=== PATIENT | female | born 1990 | race American Indian/Alaskan Native ===

== ENCOUNTER 2020-04-22 16:41 | Outpatient (CLI) | payer OTHER ==
[2020-04-22 17:57] LABS: Hemoglobin 12.2 gm/dl (10.1-14.3); Mean Corpuscular HGB Conc 35 % (30-34); Mean Corpuscular Volume 93 fl (79-97); Platelet Count 196 K/mm3 (140-440); Red Blood Count 3.75 M/mm3 (3.65-5.03); Red Cell Distribution Width 13.8 % (13.2-15.2)
[2020-04-22 18:08] LABS: Bilirubin,Urine NEG (Negative); Blood,Urine NEG (Negative); Color,Urine Yellow (Yellow); Mucus,Urine FEW /HPF; WBC,Urine < 1.0 /HPF (0.0-6.0)
[2020-04-22 18:21] LABS: Alanine Aminotransferase 13 units/L (7-56); Uric Acid 3.9 mg/dL (3.5-7.6)
[2020-04-22 18:59] VITALS: BP 114/70
== END 2020-04-22 18:59 | disposition home or self-care (01) ==
LOC: TRG 16:41 → APU 16:41 → EDBD 16:41 → TRG 18:59
PROVIDERS: ATTEND Obstetrics & Gynecology
DX: Z34.93 Encounter for supervision of normal pregnancy, unspecified, third trimester (principal); Z3A.39 39 weeks gestation of pregnancy
CPT/HCPCS: 36415; 81001; 82565; 83615; 84450; 84460; 84550; 85027

== ENCOUNTER 2020-04-26 10:32 | Inpatient (IN) | payer OTHER ==
[2020-04-26] MEDS ORDERED: OXYTOCIN DRIP 30,000 MILLIUNITS/500 ML BAG IV ONE (11:15)
[2020-04-26] MEDS ORDERED: LACTATED RINGERS 1,000 ML ONE (11:15)
[2020-04-26] MEDS ORDERED: AMPICILLIN/NS 2 GM/100 ML 2 GM/100 ML BAG IV ONE ×2 (11:30→11:39)
[2020-04-26] MEDS ORDERED: fentaNYL 100 MCG/2 ML INJ ONE (11:36)
[2020-04-26] MEDS ORDERED: fentaNYL 100 MCG/2 ML INJ IV ONE (11:46)
[2020-04-26] MEDS ORDERED: LIDOCAINE (2%) 20 MG/1 ML VIAL 20 ML MDV INFILTRATI NR (11:51)
[2020-04-26] MEDS ORDERED: TERBUTALINE 1 MG/1 ML INJ SUB-Q PRN (11:51)
--- NOTE | 2020-04-26 11:55 | History and Physical Report ---
History of Present Illness Date of examination: 04/26/20 Date of admission: 04/26/20 11:03 Chief complaint: Intense labor pains History of present illness: Early entry to care at 8 4/7 weeks to [facility]. course complicated by nausea and vomiting with weight loss of 5 lbs in second trimester, mild thyroid enlargement (TSH 0.397 on profile; TSH 1.730 at 28 weeks), and elevated blood pressure at 39 weeks (negative PIH workup). Past History Past Medical History: migraines Past Surgical History: no surgical history Family/Genetic History: hypertension (mother), other (thyroid disease - mother) Social history: no significant social history - Obstetrical History Expected Date of Delivery: 04/29/20 Actual Gestation: 39 Week(s) 4 Day(s) : 1 Para: 0 Medications and Allergies Allergies Allergy/AdvReac Type Severity Reaction Status Date / Time No Known Allergies Allergy Verified 04/22/20 16:52 Home Medications Medication Instructions Recorded Confirmed Last Taken Type RX: No Known Home Medications [No 04/26/20 04/26/20 Unknown History Reported Home Medications] Active Meds: Active Medications Fentanyl (Fentanyl 100 Mcg/2 Ml Inj) 100 mcg IV ONCE ONE Stop: 04/26/20 11:47 Ampicillin Sodium (Ampicillin/Ns 2 Gm/100 Ml) 2 gm in 100 mls @ 100 mls/hr IV ONCE ONE; Protocol Stop: 04/26/20 12:29 Review of Systems All systems: negative - Vital Signs Vital signs: Vital Signs Pulse Pulse Ox 86 98 04/22/20 19:00 04/22/20 19:00 Temp Pulse Resp BP Pulse Ox 98.5 F 78 22 129/86 100 04/26/20 11:12 04/26/20 11:40 04/26/20 11:12 04/26/20 11:12 04/26/20 11:40 - Physical Exam Breasts: Positive: normal Cardiovascular: Regular rate Lungs: Positive: Clear to auscultation, Normal air movement Abdomen: Positive: normal appearance, soft Genitourinary (Female): Positive: normal external genitalia, normal perenium Vagina: Positive: normal moisture Uterus: Positive: enlarged Anus/Rectum: Positive: normal perianal skin Extremities: Positive: normal - Obstetrical FHR: category 2 FHR comments: Multiple variable decels Uterine Contraction Monitor Mode: External Cervical Dilatation: 7 (Moderate amount of clear fluid noted upon AROM at 1120.) Cervical Effacement Percentage: 90 station: -2 Uterine Contraction Pattern: Irregular Uterine Tone Measurement Phase: Resting Uterine Contraction Intensity: Moderate Results All other labs normal. Assessment and Plan A: IUP at 39 4/7 weeks Category 2 tracing Active Labor GBS Positive P: Admit to L&D per routine orders AROM Internals x 2 placed Amnioinfusion Maternal Position Changes Prepare for Epidural Anesthesia GBS Prophylaxis
[2020-04-26] MEDS ORDERED: SODIUM CHLORIDE 0.9% 1000 ML 1,000 ML VG SCH (12:00)
[2020-04-26] MEDS ORDERED: LACTATED RINGERS 1,000 ML IV SCH (12:00)
[2020-04-26] MEDS ORDERED: NALOXONE 0.4 MG/1 ML INJ IV PRN (12:00)
[2020-04-26] MEDS ORDERED: ePHEDrine SULFATE 50 MG/1 ML INJ IV PRN ×2 (12:00→14:00)
[2020-04-26] MEDS ORDERED: BUTORPHANOL 2 MG/1 ML INJ IV PRN (12:00)
[2020-04-26] MEDS ORDERED: OXYTOCIN DRIP 30 UNITS/500 ML BAG IV SCH ×2 (12:00)
[2020-04-26] MEDS ORDERED: SODIUM CHLORIDE 0.45% 1000 ML 1,000 ML IV SCH (12:00)
[2020-04-26] MEDS ORDERED: ONDANSETRON 4 MG/2 ML INJ IV PRN (12:00)
[2020-04-26] MEDS ORDERED: SODIUM CHLORIDE 0.45% 1000 ML 1,000 ML IV ONE (12:05)
[2020-04-26 12:18] LABS: Hemoglobin 12.2 gm/dl (10.1-14.3); Mean Corpuscular HGB Conc 34 % (30-34); Mean Corpuscular Volume 94 fl (79-97); Platelet Count 191 K/mm3 (140-440); Red Blood Count 3.85 M/mm3 (3.65-5.03); Red Cell Distribution Width 13.7 % (13.2-15.2)
[2020-04-26] MEDS ORDERED: SODIUM CHLORIDE 0.45% 1000 ML IV SOLN IV SCH (12:30)
--- NOTE | 2020-04-26 13:38 | Anesthesia Consultation ---
Anesthesia Consult and Med Hx Date of service: 04/26/20 - Airway Anesthetic Teeth Evaluation: Good ROM Head & Neck: Adequate Mental/Hyoid Distance: Adequate Mallampati Class: Class II Intubation Access Assessment: Good - Pulmonary Exam CTA: Yes - Cardiac Exam Cardiac Exam: RRR - Pre-Operative Health Status ASA Pre-Surgery Classification: ASA2 Proposed Anesthetic Plan: Epidural - Pulmonary Hx Smoking: No Hx Asthma: No Hx Respiratory Symptoms: No SOB: No COPD: No Home Oxygen Therapy: No Hx Pneumonia: No Hx Sleep Apnea: No - Cardiovascular System Hx Hypertension: Yes (39 weeks, no PIH) Hx Coronary Artery Disease: No Hx Heart Attack/AMI: No Hx Angina: No Hx Percutaneous Transluminal Coronary Angioplasty (PTCA): No Hx Cardia Arrhythmia: No Hx Pacemaker: No Hx Internal Defibrillator: No Hx Valvular Heart Disease: No Hx Heart Murmur: No Hx Peripheral Vascular Disease: No - Central Nervous System Hx Neuromuscular Disorder: Yes (Migraines) Hx Seizures: No CVA: No Hx Back Pain: No Hx Psychiatric Problems: No - Gastrointestinal Hx Ulcer: No Hx Gastroesophageal Reflux Disease: Yes - Endocrine Hx Renal Disease: No Hx End Stage Renal Disease: No Hx Cirrhosis: No Hx Liver Disease: No Hx Insulin Dependent Diabetes: No Hx Non-Insulin Dependent Diabetes: No Hx Thyroid Disease: Yes Hx Hypothyroidism: No Hx Hyperthyroidism: Yes (mild) - Hematic Hx Anemia: No Hx Sickle Cell Disease: No - Other Systems Hx Alcohol Use: No Hx Substance Use: No Hx Cancer: No Hx Obesity: No
[2020-04-26] MEDS ORDERED: NALOXONE 2 MG/2 ML INJ IV PRN (13:40)
[2020-04-26] MEDS ORDERED: fentaNYL-BUPIV 2 MCG/ML-0.125% 200 MCG/100 ML BAG EPIDURAL SCH (14:00)
--- NOTE | 2020-04-26 14:00 | Progress Note ---
Labor Epidural - Labor Epidural Start Time: 13:09 Stop Time: 13:19 Performed by:: TAVIA ROGERS Procedure: Patient is requesting a laboring epidural for laboring pain. Patient IDed, H&P reviewed, all questions and concerns were answered, and consent was signed. Timeout was performed at bedside. Patient in sitting position. Sterile prep and drape was performed. [3] ml of 1% lidocaine skin wheal at L[3]- L [4]. 18- gauge Tuohy epidural needle was advanced to loss of resistance with air technique. Negative CSF negative blood. Epidural catheter advanced to [12] centimeters. [NEGATIVE] Aspiration [NEGATIVE] test dose. Sterile dressing applied. Patient tolerated procedure.
[2020-04-26] MEDS ORDERED: MINERAL OIL 30 ML ORAL LIQD ONE ×3 (14:03→15:58)
[2020-04-26] MEDS ORDERED: AMPICILLIN/NS 1 GM/50 ML 1 GM/50 ML BAG IV SCH (15:53)
[2020-04-26] MEDS ORDERED: WITCH HAZEL/ GLYCERIN PAD TP PRN (17:00)
--- NOTE | 2020-04-26 17:01 | Procedure Note ---
OB Delivery Note - Delivery Date of Delivery: 04/26/20 (1618) Surgeon: SADI LO Estimated blood loss: 200cc - Vaginal Delivery presentation: vertex Delivery position: OA Intrapartum events: mult. late decelerations, mult.variable deceleratio Delivery induction: none Delivery augmentation: rupture of membranes, pitocin Delivery monitor: internal FHT, internal uterine Route of delivery: Delivery placenta: spontaneous Delivery cord: nuchal cord, 3 umbilical vessels Episiotomy: none Delivery laceration: 1st degree (bilateral labial) Delivery repair: vicryl Anesthesia: epidural Delivery comments: of a live 6'5 male with Apgars of 8 and 9 over 1st degree bilateral labial lacerations under epidural anesthesia at 1618 on 04/26/2020. Loose nuchal cord x 1. Cord reduced over shoulders on perineum; delivered through cord. directly to maternal abd/chest, skin to skin contact. Delayed cord clamping; cord double clamped and cut by father of baby. Spontaneous delivery of placenta complete and intact with Cote side presenting at 1632. Fundus is firm and midline, located 4 below the U. Lochia is scant. Lacerations repaired with 2-0 vicryl on a SH. GBS prophylaxis x 1 dose. Placenta to be discarded. - Infant A at 1 minute: 8 at 5 minutes: 9 Gender: Male (6'5)
[2020-04-26] MEDS ORDERED: diphenhydrAMINE 25 MG CAP PO PRN (17:30)
[2020-04-26] MEDS ORDERED: PROMETHAZINE 25 MG RECT SUPP PR PRN (17:30)
[2020-04-26] MEDS ORDERED: HYDROcodone/ACETAMINOPHEN 5-325 MG TAB PO PRN (18:00)
[2020-04-26] MEDS ORDERED: LANOLIN/ZINC/DIMETHICONE (LANSINOH) 7 GM TP PRN (18:00)
[2020-04-26] MEDS ORDERED: MAGNESIUM HYDROXIDE (MOM) ORAL LIQD UDC PO PRN (22:00)
[2020-04-26] MEDS ORDERED: MINERAL OIL 30 ML ORAL LIQD PO PRN (22:00)
[2020-04-26] MEDS: IBUPROFEN 600 MG TAB PO SCH (22:52)
--- NOTE | 2020-04-27 05:38 | Post Anesthesia Evaluation ---
- Post Anesthesia Evaluation Patient Participated: Yes Airway Patent: Yes Stable Respiratory Function: Yes Nausea/Vomiting: No Temp > 96.8F: Yes Pain Manageable: Yes Adequeate Hydration: Yes Anesthesia Complications: No Block Receding Appropriately: Yes Patient on Ventilator: No
[2020-04-27] MEDS: IBUPROFEN 600 MG TAB PO SCH ×4 (05:39→23:28)
[2020-04-27 08:11] LABS: Hematocrit 32.7 % (30.3-42.9); Hemoglobin 11.1 gm/dl (10.1-14.3)
--- NOTE | 2020-04-27 09:07 | Progress Note ---
Assessment and Plan PPD # 1 A: S/P p: Continue monitoring Encourage ambulation D/C home tomm if stable Subjective - Subjective Date of service: 04/27/20 Principal diagnosis: S/P Patient reports: appetite normal, voiding normally, pain well controlled, ambulating normally [place]: doing well, bottle feeding Objective - Vital Signs Latest vital signs: Vital Signs Temp Pulse Resp BP BP Pulse Ox 04/27/20 08:00 98.0 F 93 H 18 138/83 99 04/27/20 05:39 20 04/27/20 05:37 98.8 F 81 16 111/79 99 04/27/20 00:37 99.2 F 97 H 18 112/76 98 04/26/20 22:52 20 04/26/20 19:55 98.1 F 71 16 122/84 100 04/26/20 18:29 98.8 F 87 16 127/75 100 04/26/20 18:08 104 H 131/86 04/26/20 18:05 18 04/26/20 17:52 88 125/63 04/26/20 17:50 81 134/60 98 04/26/20 17:49 85 124/60 04/26/20 17:47 100 H 139/62 04/26/20 17:45 101 H 146/66 100 04/26/20 17:42 95 H 127/77 04/26/20 17:40 98 H 129/78 100 04/26/20 17:38 82 123/73 04/26/20 17:36 77 127/78 04/26/20 17:35 81 99 04/26/20 17:34 79 124/72 04/26/20 17:32 85 117/70 04/26/20 17:31 80 115/67 04/26/20 17:30 83 98 04/26/20 17:29 91 H 127/77 04/26/20 17:25 79 86 04/26/20 17:22 94 H 136/78 04/26/20 17:20 93 H 136/77 100 04/26/20 17:18 91 H 128/77 04/26/20 17:16 89 127/78 04/26/20 17:15 96 H 100 04/26/20 17:14 86 126/79 04/26/20 17:12 84 129/80 04/26/20 17:10 88 127/74 100 04/26/20 17:08 104 H 140/79 04/26/20 17:06 89 124/80 04/26/20 17:05 102 H 100 04/26/20 17:04 96 H 128/80 04/26/20 17:02 86 120/78 04/26/20 17:00 93 H 114/78 99 04/26/20 16:58 85 114/73 04/26/20 16:56 94 H 113/74 04/26/20 16:55 96 H 100 04/26/20 16:54 96 H 126/72 04/26/20 16:53 104 H 134/71 04/26/20 16:50 106 H 97 04/26/20 16:49 110 H 119/69 04/26/20 16:46 101 H 127/80 04/26/20 16:45 102 H 97 04/26/20 16:44 98 H 124/70 04/26/20 16:42 101 H 126/61 04/26/20 16:40 97 H 122/61 04/26/20 16:38 96 H 127/61 04/26/20 16:37 96 H 127/66 04/26/20 16:35 106 H 110/58 04/26/20 16:32 88 116/60 65 L 04/26/20 16:30 109 H 117/62 04/26/20 16:28 111 H 115/60 04/26/20 16:27 66 72 L 04/26/20 16:26 114 H 124/57 04/26/20 16:24 120 H 132/58 04/26/20 16:22 120 H 135/63 04/26/20 16:21 131 H 135/63 04/26/20 16:19 157 H 191/93 04/26/20 16:16 125 H 117/60 04/26/20 16:14 126/61 04/26/20 16:12 162 H 117/58 04/26/20 16:10 141 H 124/73 04/26/20 16:08 129 H 126/56 04/26/20 16:06 117 H 119/58 04/26/20 16:04 131 H 115/55 04/26/20 16:03 123 H 119/57 03/15/21 16:01 81 153/91 88 03/15/21 16:00 55 L 94 04/26/20 15:58 137 H 125/78 04/26/20 15:56 153 H 129/81 04/26/20 15:54 157 H 122/71 04/26/20 15:53 130 H 117/55 04/26/20 15:51 155 H 215/96 04/26/20 15:49 142 H 0 L 04/26/20 15:47 129 H 130/58 04/26/20 15:46 93 H 96 04/26/20 15:44 101 H 120/64 04/26/20 15:42 134 H 116/65 04/26/20 15:41 64 100 04/26/20 15:40 97 H 113/63 04/26/20 15:38 93 H 111/61 04/26/20 15:37 97 H 108/69 04/26/20 15:36 99 H 100 04/26/20 15:35 120 H 105/70 04/26/20 15:33 98 H 116/55 04/26/20 15:31 122 H 122/62 100 04/26/20 15:29 127 H 144/62 04/26/20 15:27 86 126/61 04/26/20 15:26 87 100 04/26/20 15:24 80 119/69 04/26/20 15:22 78 112/72 04/26/20 15:21 85 100 04/26/20 15:20 73 116/73 92 04/26/20 15:18 75 115/69 04/26/20 15:17 80 120/77 04/26/20 15:16 83 100 04/26/20 15:14 87 125/82 04/26/20 15:12 79 124/77 04/26/20 15:11 79 100 04/26/20 15:10 77 119/75 04/26/20 15:08 69 118/74 04/26/20 15:06 76 117/76 100 04/26/20 15:04 81 120/78 04/26/20 15:03 82 118/75 04/26/20 15:01 82 100 04/26/20 15:00 79 120/77 04/26/20 14:58 75 121/75 04/26/20 14:56 84 130/83 100 04/26/20 14:54 81 128/71 04/26/20 14:52 91 H 127/70 04/26/20 14:51 75 100 04/26/20 14:50 74 126/72 04/26/20 14:48 80 127/78 04/26/20 14:46 84 127/77 100 04/26/20 14:44 77 119/80 04/26/20 14:42 137/75 04/26/20 14:41 91 H 100 04/26/20 14:40 76 119/73 04/26/20 14:39 82 124/77 04/26/20 14:37 88 140/99 04/26/20 14:36 88 100 04/26/20 14:34 86 115/68 04/26/20 14:33 85 126/78 04/26/20 14:31 75 100 04/26/20 14:30 83 120/56 04/26/20 14:29 78 123/61 04/26/20 14:26 81 120/68 100 04/26/20 14:25 88 128/75 04/26/20 14:23 88 114/81 04/26/20 14:21 80 117/73 100 04/26/20 14:18 93 H 114/84 04/26/20 14:16 86 118/78 100 04/26/20 14:14 82 116/66 04/26/20 14:12 75 109/63 04/26/20 14:11 79 112/61 100 04/26/20 14:09 92 H 110/53 04/26/20 14:07 101 H 130/79 04/26/20 14:06 92 H 99 04/26/20 14:05 93 H 112/61 04/26/20 14:03 146 H 157/107 04/26/20 14:01 94 H 100 04/26/20 13:59 89 133/59 04/26/20 13:56 85 100 04/26/20 13:54 90 118/57 04/26/20 13:51 83 100 04/26/20 13:48 82 118/62 04/26/20 13:47 100 H 107/63 04/26/20 13:46 91 H 100 04/26/20 13:45 82 112/68 04/26/20 13:41 93 H 99 04/26/20 13:37 186/131 04/26/20 13:35 82 89 04/26/20 13:34 76 98 04/26/20 13:30 103 H 195/128 04/26/20 13:29 75 83 L 04/26/20 13:28 85 94 04/26/20 13:26 128/72 04/26/20 13:25 130/84 04/26/20 13:24 73 99 04/26/20 13:23 90 141/81 92 04/26/20 13:20 79 124/68 04/26/20 13:19 65 99 04/26/20 13:18 95 H 121/66 04/26/20 13:16 77 119/59 04/26/20 13:14 79 110/57 98 04/26/20 13:12 78 120/62 04/26/20 13:09 82 99 04/26/20 13:04 90 99 04/26/20 12:59 76 100 04/26/20 12:54 105 H 100 04/26/20 12:49 81 100 04/26/20 12:44 111 H 99 04/26/20 12:39 89 99 04/26/20 12:34 80 100 04/26/20 12:29 76 100 04/26/20 12:24 79 99 04/26/20 12:19 77 100 04/26/20 12:14 86 82 L 04/26/20 12:09 93 04/26/20 11:45 18 04/26/20 11:40 78 100 04/26/20 11:35 83 99 04/26/20 11:30 83 98 04/26/20 11:25 91 H 97 04/26/20 11:23 82 71 L 04/26/20 11:12 98.5 F 70 22 129/86 99 04/26/20 10:58 81 99 04/26/20 10:53 84 98 04/26/20 10:51 98 H 92 04/26/20 10:48 76 98 04/26/20 10:43 98.6 F 87 20 99 04/26/20 10:42 90 115/77 Intake and Output 04/26/20 04/27/20 04/27/20 22:59 06:59 14:59 Intake Total 120 240 120 Output Total 600 500 450 Balance -480 -260 -330 Intake: Oral 120 120 Intake, Free Water 240 Output: Urine 600 500 450 Void 600 500 450 Other: Total, Intake Amount 120 120 Total, Output Amount 600 500 450 # Voids Void 1 1 - Exam Breasts: Present: normal Abdomen: Present: normal appearance, soft, normal bowel sounds Vulva: both: normal Uterus: Present: normal, firm, fundal height below umbilicus Extremities: Present: normal Incision: Present: normal, intact - Labs Labs: Abnormal lab results 04/26/20 Range/Units 11:14 WBC 12.4 H (4.5-11.0) K/mm3
--- NOTE | 2020-04-27 09:13 | Discharge Summary ---
Providers - Providers Date of Admission: 04/26/20 11:51 Date of discharge: 04/28/20 Attending physician: SAV TELLES JR, MD Primary care physician: SAV TELLES JR, MD Hospitalization Reason for admission: active labor Delivery: Episiotomy: none Laceration: 1st degree Incision: normal, intact Other procedures: none complications: none Discharge diagnosis: IUP at term delivered baby: male Hospital course: Pt was admitted in active labor and had a and no pp complications. See H&P,delivery summary, and pp notes. Condition at discharge: Stable Disposition: DC-01 TO HOME OR SELFCARE Plan - Provider Discharge Summary Activity: routine, no sex for 6 weeks, no heavy lifting 4 weeks, no strenuous exercise Diet: routine Instructions: routine Additional instructions: [] Smoking cessation referral if applicable(refer to patient education folder for contact #) [] Refer to [facility]'s [facility] Booklet Call your doctor immediately for: * Fever > 100.5 * Heavy vaginal bleeding ( >1 pad per hour) * Severe persistent headache * Shortness of breath * Reddened, hot, painful area to leg or breast * Drainage or odor from incision. * Keep incision clean and dry at all times and follow doctor's instructions regarding bathing/showering - Follow up plan Follow up: SAV TELLES JR, MD [Primary Care Provider] - 6 Weeks Forms: [facility] Discharge Summary
[2020-04-28] MEDS: IBUPROFEN 600 MG TAB PO SCH ×2 (05:13→12:02)
[2020-04-28 17:17] VITALS: BP 129/84
== END 2020-04-28 18:00 | disposition home or self-care (01) | DRG 775 ==
LOC: TRG 10:32 → APU 10:33 → LD 11:03 → TRG 11:03 → OBSVTOIN 11:51 → OB 18:24
PROVIDERS: ADMIT Obstetrics & Gynecology; ATTEND Obstetrics & Gynecology
PROC: 10E0XZZ Delivery of Products of Conception, External Approach (ICD-10-PCS; principal; 2020-04-26)
PROC: 0HQ9XZZ Repair Perineum Skin, External Approach (ICD-10-PCS; 2020-04-26)
PROC: 3E0R3BZ Introduction of Anesthetic Agent into Spinal Canal, Percutaneous Approach (ICD-10-PCS; 2020-04-26)
PROC: 00HU33Z Insertion of Infusion Device into Spinal Canal, Percutaneous Approach (ICD-10-PCS; 2020-04-26)
DX: O99.824 Streptococcus B carrier state complicating childbirth (principal); Z3A.39 39 weeks gestation of pregnancy; Z37.0 Single live birth; Z82.49 Family history of ischemic heart disease and other diseases of the circulatory system; Z20.822 Contact with and (suspected) exposure to COVID-19; O76 Abnormality in fetal heart rate and rhythm complicating labor and delivery; O70.0 First degree perineal laceration during delivery
CPT/HCPCS: 36415; 85014; 85018; 85027; 86850; 86900; 86901; G0378; J0290; J2590; J3010; J7030; J7120; U0003